=== PATIENT | female | born 1965 | race Caucasian/White ===

== ENCOUNTER → 2018-05-03 13:53 | Outpatient (CLI) | payer MEDICAID, SELFPAY ==
--- NOTE | 2018-05-03 13:59 | CT_ITS ---
STUDY: CT CHEST WITHOUT CONTRAST REASON FOR EXAM: Female, 52 years old. Patient has a history of metastatic lung cancer. This is a radiation treatment planning examination. RADIATION DOSAGE (If Supplied By Facility): CTDIvol = ( 15.42 ) mGy, DLP = ( 589.99 ) mGycm TECHNIQUE: Transaxial imaging was performed without the administration of intravenous contrast material. Individualized dose optimization techniques were used for this CT. COMPARISON: None. FINDINGS: A right-sided portacatheter is seen. There is a 2.6 cm x 3.6 cm soft tissue mass in the right infrahilar region. This extends into the medial aspect of the right lower lobe. There is a 6.7 cm x 3 cm pleural based mass along the lateral posterior aspect of the left upper and left mid hemithorax with destruction of the overlying ribs. Normal heart and pericardium. There are multiple small lymph nodes within the mediastinum, which are normal in size and morphology most compatible with reactive lymph hyperplasia. Normal hilar regions. Normal unenhanced pulmonary arteries. Normal aorta arch and descending thoracic aorta. There is a 4.9 cm x 4.4 cm hypodense mass in the medial aspect of the right lobe of the liver extending towards the caudate lobe. CT/Chest without Contrast IMPRESSION: Soft tissue mass in the right infrahilar region. Pleural-based mass in the left hemithorax with overlying bony destruction. Hypodense mass in the liver as described. Electronically Signed: Valeriano Garcia MD at 13:41 EDT Tel [phone], Service support ,
== END ==
PROVIDERS: Visit Provider Radiology Radiation Oncology
DX: C34.12 Malignant neoplasm of upper lobe, left bronchus or lung (principal); C79.51 Secondary malignant neoplasm of bone
CPT/HCPCS: 71250